=== PATIENT | female | born 1955 | race Caucasian/White ===

== ENCOUNTER 2023-07-31 19:19 | Emergency (ER) | payer MEDICARE | END 2023-07-31 21:14 | disposition home or self-care (01) | LOC: MADERS 19:19 | DX: S61.012A Laceration without foreign body of left thumb without damage to nail, initial encounter (principal); S61.211A Laceration without foreign body of left index finger without damage to nail, initial encounter; I10 Essential (primary) hypertension; W26.0XXA Contact with knife, initial encounter | CPT/HCPCS: 12001; 99282 ==